=== PATIENT | female | born 1995 ===

== ENCOUNTER 2020-07-23 17:47 | Emergency (ER) | payer OTHER ==
[~2020-07-23] VITALS: Ht 170.2 cm; Wt 63.5 kg
[2020-07-23 18:54] LABS: BASOPHILS ABSOLUTE AUTO 0.07 K/mm3 (0.00-0.23); BASOPHILS PERCENT AUTO 1 % (0-2); EOSINOPHILS ABSOLUTE AUTO 0.11 K/mm3 (0.00-0.68); EOSINOPHILS PERCENT AUTO 1 % (0-6); Hematocrit 44.7 % (33.0-51.0); Hemoglobin 15.3 g/dL (11.5-16.0); IMMATURE GRAN ABSOLUTE AUTO 0.04 K/mm3 (0.00-0.10); IMMATURE GRAN PERCENT AUTO 0 % (0-1); LYMPHOCYTES ABSOLUTE AUTO 2.58 K/mm3 (0.84-5.20); LYMPHOCYTES PERCENT AUTO 17 % (21-46); MONOCYTES PERCENT AUTO 6 % (4-13); Mean Corpuscular HGB Conc 34.2 g/dL (31.5-36.5); Mean Corpuscular Volume 91 fL (80-100); Mean Platelet Volume 11.3 fL (9.1-12.4); NEUTROPHILS ABSOLUTE AUTO 11.18 K/mm3 (1.96-9.15); NEUTROPHILS PERCENT AUTO 75 % (41-73); Platelet Count 277 K/mm3 (150-400); RDW Coefficient Variation 12.4 % (11.7-14.2); RDW Standard Deviation 40.7 fL (35.1-46.3); Red Blood Cell Count 4.93 M/mm3 (3.80-5.20); White Blood Cell Count 14.88 K/mm3 (4.00-11.30)
[2020-07-23 19:24] LABS: Alanine Aminotransfer (ALT/SGP 25 U/L (12-78); Albumin, Blood 4.1 g/dL (3.4-5.0); Albumin/Globulin Ratio 1.1 (0.8-1.8); Alk Phos 71 U/L (50-136); Anion Gap 7 mmol/L (6-16); Aspartate Aminotrans (AST/SGOT 28 U/L (12-37); Bilirubin, Total 0.3 mg/dL (0.1-1.0); Blood Urea Nitrogen 16 mg/dL (8-24); Bun/Creatinine Ratio 21.9 (12.0-20.0); CO2, Blood 25 mmol/L (21-32); Calcium, Blood 9.3 mg/dL (8.5-10.1); Chloride, Blood 107 mmol/L (98-108); Creatinine, Blood 0.73 mg/dL (0.40-1.00); Globulin, Blood 3.8 g/dL (2.2-4.0); Glomerular Filtration Rate >60 (60-); Glucose, Blood 97 mg/dL (70-99); Potassium, Blood 3.7 mmol/L (3.5-5.5); Sodium, Blood 139 mmol/L (136-145); Total Protein, Blood 7.9 g/dL (6.4-8.2)
[2020-07-23] MEDS ORDERED: AMOX-CLAV 875-1 EAC5 PO (20:09)
[2020-07-23] MEDS ORDERED: ZOLOFT25 MG PO (20:10)
[2020-07-23] MEDS ORDERED: Zithromax250 MG PO (21:33)
== END 2020-07-23 22:23 | disposition home or self-care (01) ==
LOC: ER 17:47
PROVIDERS: Emergency Medicine
DX: S60.811A Abrasion of right wrist, initial encounter (principal); I89.1 Lymphangitis; Z79.899 Other long term (current) drug therapy; W55.03XA Scratched by cat, initial encounter; Z88.2 Allergy status to sulfonamides
CPT/HCPCS: 36415; 80053; 81025; 85025; 99282; A9270

== ENCOUNTER → 2020-11-03 | Outpatient (CLI) | payer OTHER ==
[~2020-11-03] MED LIST: AMOX-CLAV 875-1 EAC5 PO; ZOLOFT25 MG PO; Zithromax250 MG PO
== END ==
LOC: LAB 12:49 → LAB SHORT 12:49
DX: J02.9 Acute pharyngitis, unspecified (principal)
CPT/HCPCS: 87081